=== PATIENT | female | born 1980 | race African-American/Black ===

== ENCOUNTER 2016-04-10 18:23 | Emergency (ER) | payer SELFPAY ==
[~2016-04-10] VITALS: Ht 154.9 cm; Wt 107.0 kg
[2016-04-10 19:35] VITALS: BP 119/72
[2016-04-10] MEDS ORDERED: HYDR-2666 PO (19:52)
[2016-04-10] MEDS ORDERED: AMOX875T PO (19:52)
--- NOTE | 2016-04-10 19:53 | PHYS DOC ---
Past Medical History Past Medical History: No Pertinent History Past Surgical History: Additional Information: 0.5 PPD Alcohol Use: None Drug Use: None Adult General Chief Complaint Chief Complaint: DENTAL PROBLEM HPI HPI Patient is a 35 year old female who presents with dental pain for 2 days. Patient states she has no medical insurance and cannot seem dentist. Denies any fever, denies any trismus. Review of Systems Review of Systems Constitutional: See history of present illness Eyes: Denies change in visual acuity, redness, or eye pain [] HENT: Dental pain for 2 days Musculoskeletal: Denies back pain or joint pain [] Integument: Denies rash or skin lesions [] Neurologic: Denies headache, focal weakness or sensory changes [] Endocrine: Denies polyuria or polydipsia [] Allergies Allergies Allergies Coded Allergies Type Severity Reaction Last Updated Verified No Known Drug Allergies 04/10/16 No Physical Exam Physical Exam Constitutional: Well developed, well nourished, no acute distress, non-toxic appearance. [] HENT: Normocephalic, atraumatic, bilateral external ears normal, oropharynx moist, no oral exudates, nose normal. [] Tooth #19 and 20 with small amount of dental caries, tooth #22 is decayed and broken. Skin: Warm, dry, no erythema, no rash. [] Back: No tenderness, no CVA tenderness. [] Extremities: No tenderness, no cyanosis, no clubbing, ROM intact, no edema. [] Neurologic: Alert and oriented X 3, normal motor function, normal sensory function, no focal deficits noted. [] Psychologic: Affect normal, judgement normal, mood normal. [] Current Patient Data Vital Signs Vital Signs Date Time Temp Pulse Resp B/P Pulse Ox O2 Delivery O2 Flow Rate FiO2 04/10/16 19:35 97.4 74 18 100 Room Air 97.4 EKG EKG [] Radiology/Procedures Radiology/Procedures [] Course & Med Decision Making Course & Med Decision Making Pertinent Labs and Imaging studies reviewed. (See chart for details) Patient has infected dental caries. Discharged with amoxicillin for 10 days. Follow-up with dentist in one week. Provided return precautions and discharged in stable condition. Dragon Disclaimer Dragon Disclaimer This electronic medical record was generated, in whole or in part, using a voice recognition dictation system. Departure Departure Impression: Primary Impression: Dentalgia Additional Impression: Infected dental caries Disposition: HOME, SELF-CARE Condition: STABLE Referrals: NO PCP (PCP) Follow-up with the dentist as soon as possible Patient Instructions: Dental Caries Additional Instructions: You were seen for dental infection. Complete your antibiotics. Follow-up with the dentist as soon as possible. Scripts Hydrocodone Bit/Acetaminophen (Hydrocodone-Apap 5-325 )1 Each Tablet1 Tab PO PRN Q6HRS PRN PAIN #10 TAB Ref 0 Prov:ZACHARY INTERIANO APRN 04/10/16 Amoxicillin 875 Mg Tablet1 Tab PO BID #20 TAB Prov:ZACHARY INTERIANO APRN 04/10/16 Problem Qualifiers ZACHARY INTERIANO APRN Apr 10, 2016 19:53
== END 2016-04-10 19:59 | disposition home or self-care (01) ==
LOC: ER 18:23
DX: K02.9 Dental caries, unspecified (principal); K08.89 Other specified disorders of teeth and supporting structures; F17.200 Nicotine dependence, unspecified, uncomplicated
CPT/HCPCS: 99283